=== PATIENT | female | born 1935 | race African-American/Black ===

== ENCOUNTER → 2016-08-15 | Outpatient (CLI) | payer BC, MEDICARE ==
--- NOTE | 2016-08-15 16:42 | CARD ---
APPROVED REPORT EXAM: Two-dimensional and M-mode echocardiogram with Doppler and color Doppler. Other Information Quality : GoodHR: 62bpm Rhythm : NSR INDICATION Syncope RISK FACTORS Family History 2D DIMENSIONS RVDd1.8 (2.9-3.5cm)Left Atrium(2D)2.8 (1.6-4.0cm) IVSd0.9 (0.7-1.1cm)Aortic Root(2D)2.9 (2.0-3.7cm) LVDd3.2 (3.9-5.9cm)LVOT Diameter2.2 (1.8-2.4cm) PWd0.8 (0.7-1.1cm) Aortic Valve AoV Peak Wilber.130.4cm/sAoV VTI26.0cm AO Peak GR.6.8mmHgLVOT Peak Wilber.87.7cm/s AO Mean GR.3mmHgAVA (VMAX)2.46cm2 Mitral Valve MV E Cwzidfdt98.9cm/sMV E Peak Gr.2mmHg MV DECEL [id number] A Etiognti27.0cm/s MV E Mean Gr.1mmHgE/A Ratio0.8 MV A [id number] Pulmonary Valve PV Peak Hscswzfc70.7cm/s Tricuspid Valve TR P. Xcuoukbo165tn/sTR Peak Gr.26mmHg Pulmonary Vein S1 Guotjzhc19.0cm/sD2 Mfshzhbp24.7cm/s PVa [id number] LEFT VENTRICLE The left ventricle is normal size. There is borderline concentric left ventricular hypertrophy. The l eft ventricular systolic function is normal and the ejection fraction is within normal range. The Eje ction Fraction is 55-60%. Transmitral Doppler flow pattern is Grade I-abnormal relaxation pattern. RIGHT VENTRICLE The right ventricle is normal size. There is normal right ventricular wall thickness. The right ventr icular systolic function is normal. ATRIA The left atrium size is normal. The right atrium size is normal. The interatrial septum is intact wit h no evidence for an atrial septal defect or patent foramen ovale as noted on 2-D or Doppler imaging. AORTIC VALVE The aortic valve is mildly thickened. The aortic valve is trileaflet. Doppler and Color Flow revealed no significant aortic regurgitation. There is no significant aortic valvular stenosis. MITRAL VALVE The mitral valve is normal in structure and function. There is no evidence of mitral valve prolapse. There is no mitral valve stenosis. Doppler and Color Flow revealed trace mitral regurgitation. TRICUSPID VALVE Doppler and Color Flow revealed trace to mild tricuspid regurgitation. The pulmonary artery systolic pressure is estimated at 29 mmHg. GREAT VESSELS The aortic root is normal in size. The ascending aorta is normal in size. The pulmonary artery is nor mal. The IVC is normal in size and collapses >50% with inspiration. PERICARDIAL EFFUSION There is no evidence of significant pericardial effusion. Critical Notification Critical Value: No <Conclusion> The left ventricle is normal size. The left ventricular systolic function is normal and the ejection fraction is within normal range. The Ejection Fraction is 55-60%. There is borderline concentric left ventricular hypertrophy. There is no significant aortic valvular stenosis. Doppler and Color Flow revealed no significant aortic regurgitation. Doppler and Color Flow revealed trace mitral regurgitation. Doppler and Color Flow revealed trace to mild tricuspid regurgitation. The pulmonary artery systolic pressure is estimated at 29 mmHg.
--- NOTE | 2016-08-16 12:06 | RAD ---
APPROVED REPORT Patient Location: OUT-PATIENT Laterality:Bilateral Indications Syncope Doppler Spectral Velocity Analysis Right Left mCCA 63/63 cm/smCCA 83/83 cm/s ECA 41/ cm/sECA 44/ cm/s pICA 58/20 cm/spICA 31/12 cm/s Don 72/21 cm/smICA 62/23 cm/s dICA 65/24 cm/sdICA 54/20 cm/s ICA/CCA 1.14ICA/CCA 0.75 Findings Tena scale images of the bilateral common carotid arteries and limited imaging of the internal and ex ternal coronary arteries in grayscale demonstrates mild intimal thickening without any significant ob structive plaque. Spectral waveforms in the bilateral common carotid, external carotid and internal carotid artery are within normal limits without any significant velocity acceleration. Normal anterograde vertebral artery velocities noted. Critical Notification Critical Value: No <Conclusion> 1. No high-grade bilateral carotid arterial disease.
== END | disposition home or self-care (01) ==
LOC: ECHO 10:59
PROVIDERS: ATTEND Internal Medicine Cardiovascular Disease
DX: R55 Syncope and collapse (principal); I08.1 Rheumatic disorders of both mitral and tricuspid valves
CPT/HCPCS: 93306; 93880